=== PATIENT | male | born 1955 | race Caucasian/White ===

== ENCOUNTER 2017-04-15 08:00 | Outpatient (CLI) | payer OTHER | END 2017-04-15 08:01 | disposition home or self-care (01) | LOC: LAB.R 08:00 | PROVIDERS: ATTEND Family Medicine | DX: R31.9 Hematuria, unspecified (principal) | CPT/HCPCS: 87086 ==

== ENCOUNTER 2017-04-23 22:31 | Outpatient (CLI) | payer OTHER ==
[2017-04-23 19:35] LABS: CREATININE 1.1 mg/dL (0.6-1.2)
== END 2017-04-23 22:32 | disposition home or self-care (01) ==
LOC: LAB.WCP 22:31
PROVIDERS: ATTEND Family Medicine
DX: R31.9 Hematuria, unspecified (principal)
CPT/HCPCS: 36415; 82565

== ENCOUNTER 2017-06-05 06:43 | Outpatient (CLI) | payer OTHER ==
[2017-06-05 19:44] LABS: BASOPHILS # (AUTO) 0.1 10^3/uL (0.0-0.1); BASOPHILS % (AUTO) 0.9 %; EOSINOPHILS # (AUTO) 0.3 10^3/uL (0.0-0.7); EOSINOPHILS % (AUTO) 4.6 %; HCT - HEMATOCRIT 42.8 % (42.0-52.0); HGB - HEMOGLOBIN 14.4 g/dL (14.0-18.0); LYMPHOCYTES # (AUTO) 1.8 10^3/uL (1.5-3.5); LYMPHOCYTES % (AUTO) 28.7 %; MEAN CORPUSCULAR HEMOGLOBIN 31.3 pg (27.0-31.0); MEAN CORPUSCULAR HGB CONC 33.6 g/dL (32.0-36.0); MEAN CORPUSCULAR VOLUME 93.2 fL (80.0-94.0); MEAN PLATELET VOLUME 9.1 fL (7.4-11.4); MONOCYTES # (AUTO) 0.7 10^3/uL (0.0-1.0); MONOCYTES % (AUTO) 10.7 %; NEUTROPHILS # (AUTO) 3.5 10^3/uL (1.5-6.6); NEUTROPHILS % (AUTO) 55.1 %; NUCLEATED RED BLOOD CELLS AUTO 0.1 /100WBC; RED BLOOD COUNT 4.59 10^6/uL (4.70-6.10); RED CELL DISTRIBUTION WIDTH 13.4 % (12.0-15.0); UNCORRECTED WHITE BLOOD COUNT 6.4 x10^3/uL; WHITE BLOOD COUNT 6.4 x10^3/uL (4.8-10.8)
[2017-06-05 20:13] LABS: ALBUMIN/GLOBULIN RATIO 1.6 (1.0-2.2); BILIRUBIN,TOTAL 0.9 mg/dL (0.2-1.0); BUN - BLOOD UREA NITROGEN 20 mg/dL (6-20); CALCIUM 8.7 mg/dL (8.5-10.3); CARBON DIOXIDE - CO2 24 mmol/L (21-32); CHLORIDE 106 mmol/L (101-111); CHOL/HDL RATIO 4.6 (<5.0); CHOLESTEROL 152 mg/dL; CREATININE 1.1 mg/dL (0.6-1.2); GFR - MDRD 68 (>89); GLUCOSE 93 mg/dL (70-100); HDL CHOLESTEROL 33 mg/dL; LDL/HDL RATIO 3.3 (<3.6); POTASSIUM 3.9 mmol/L (3.5-5.0); SODIUM 138 mmol/L (135-145); TRIGLYCERIDES 56 mg/dL; VLDL CHOLESTEROL 11 mg/dL
== END 2017-06-05 06:44 | disposition home or self-care (01) ==
LOC: LAB.WCP 06:43
PROVIDERS: ATTEND Family Medicine
DX: Z00.00 Encounter for general adult medical examination without abnormal findings (principal)
CPT/HCPCS: 36415; 80053; 80061; 84443; 85025

== ENCOUNTER 2018-03-30 07:00 | Outpatient (CLI) | payer OTHER ==
[2018-03-30 14:04] LABS: BASOPHILS % (AUTO) 0.6 %; EOSINOPHILS # (AUTO) 0.2 10^3/uL (0.0-0.7); EOSINOPHILS % (AUTO) 3.9 %; HGB - HEMOGLOBIN 15.1 g/dL (14.0-18.0); LYMPHOCYTES # (AUTO) 1.4 10^3/uL (1.5-3.5); LYMPHOCYTES % (AUTO) 27.9 %; MEAN CORPUSCULAR HEMOGLOBIN 31.8 pg (27.0-31.0); MEAN CORPUSCULAR HGB CONC 34.1 g/dL (32.0-36.0); MEAN CORPUSCULAR VOLUME 93.4 fL (80.0-94.0); MEAN PLATELET VOLUME 9.7 fL (7.4-11.4); MONOCYTES # (AUTO) 0.6 10^3/uL (0.0-1.0); MONOCYTES % (AUTO) 11.4 %; NEUTROPHILS # (AUTO) 2.9 10^3/uL (1.5-6.6); NEUTROPHILS % (AUTO) 56.2 %; PLT - PLATELET COUNT 239 10^3/uL (130-450); RED BLOOD COUNT 4.76 10^6/uL (4.70-6.10); RED CELL DISTRIBUTION WIDTH 13.5 % (12.0-15.0); WHITE BLOOD COUNT 5.2 x10^3/uL (4.8-10.8)
[2018-03-30 14:28] LABS: ALBUMIN 4.3 g/dL (3.2-5.5); ALBUMIN/GLOBULIN RATIO 1.4 (1.0-2.2); ALKALINE PHOSPHATASE 59 IU/L (42-121); ALT ALANINE AMINOTRANSFERASE 30 IU/L (10-60); AST ASPARTATE AMINOTRANSFERASE 28 IU/L (10-42); BILIRUBIN,TOTAL 0.9 mg/dL (0.2-1.0); BUN - BLOOD UREA NITROGEN 23 mg/dL (6-20); CALCIUM 9.2 mg/dL (8.5-10.3); CARBON DIOXIDE - CO2 26 mmol/L (21-32); CHLORIDE 104 mmol/L (101-111); CHOL/HDL RATIO 4.1 (<5.0); CHOLESTEROL 136 mg/dL; CREATININE 1.2 mg/dL (0.6-1.2); GFR - MDRD 61 (>89); GLUCOSE 96 mg/dL (70-100); HDL CHOLESTEROL 33 mg/dL; LDL CHOLESTEROL,CALCULATED 88 mg/dL; LDL/HDL RATIO 2.7 (<3.6); SODIUM 139 mmol/L (135-145); TOTAL PROTEIN 7.4 g/dL (6.7-8.2); VLDL CHOLESTEROL 15 mg/dL
== END 2018-03-30 07:01 | disposition home or self-care (01) ==
LOC: LAB.WCP 07:00
PROVIDERS: ATTEND Family Medicine
DX: Z00.00 Encounter for general adult medical examination without abnormal findings (principal); I10 Essential (primary) hypertension
CPT/HCPCS: 36415; 80053; 80061; 83721; 84153; 84443; 85025

== ENCOUNTER 2018-12-06 08:44 | Outpatient (CLI) | payer OTHER ==
--- NOTE | 2018-12-06 10:44 | XRAY Report ---
Reason: SHOULDER PAIN,RIGHT Procedure Date: 12/06/2018 Accession Number: [id number] / [id number] Procedure: WCP - Shoulder 2 View RT CPT Code: FULL RESULT: EXAM: RIGHT SHOULDER RADIOGRAPHY EXAM DATE: 12/06/2018 09:08 AM. CLINICAL HISTORY: Shoulder pain, right. COMPARISON: None. TECHNIQUE: 2 views. FINDINGS: Bones: There is a deformity of the humeral head suggestive of prior dislocation, Hill-Sachs lesion. Joints: Moderate degenerative changes of the AC joint are noted. Soft tissues: The visualized hemithorax is unremarkable. No soft tissue swelling. IMPRESSION: Likely prior dislocation and degenerative AC joint changes with no other acute fracture or dislocation identified. [facility]
== END 2018-12-06 08:45 | disposition home or self-care (01) ==
LOC: DI.WCP 08:44
PROVIDERS: ATTEND Family Medicine
DX: M19.011 Primary osteoarthritis, right shoulder (principal)

== ENCOUNTER 2019-12-21 07:16 | Outpatient (CLI) | payer OTHER ==
[2019-12-21 13:10] LABS: BASOPHILS # (AUTO) 0.1 10^3/uL (0.0-0.1); BASOPHILS % (AUTO) 0.9 %; EOSINOPHILS # (AUTO) 0.2 10^3/uL (0.0-0.7); EOSINOPHILS % (AUTO) 3.6 %; HGB - HEMOGLOBIN 15.3 g/dL (14.0-18.0); LYMPHOCYTES # (AUTO) 1.3 10^3/uL (1.5-3.5); LYMPHOCYTES % (AUTO) 22.7 %; MEAN CORPUSCULAR HEMOGLOBIN 31.1 pg (27.0-31.0); MEAN CORPUSCULAR HGB CONC 32.2 g/dL (32.0-36.0); MEAN CORPUSCULAR VOLUME 96.5 fL (80.0-94.0); MONOCYTES # (AUTO) 0.6 10^3/uL (0.0-1.0); MONOCYTES % (AUTO) 10.7 %; NEUTROPHILS # (AUTO) 3.5 10^3/uL (1.5-6.6); NEUTROPHILS % (AUTO) 61.7 %; PLT - PLATELET COUNT 259 10^3/uL (130-450); RED BLOOD COUNT 4.92 10^6/uL (4.70-6.10); RED CELL DISTRIBUTION WIDTH 13.2 % (12.0-15.0); WHITE BLOOD COUNT 5.6 x10^3/uL (4.8-10.8)
[2019-12-21 13:55] LABS: ALBUMIN 4.1 g/dL (3.2-5.5); ALBUMIN/GLOBULIN RATIO 1.4 (1.0-2.2); ALKALINE PHOSPHATASE 65 IU/L (42-121); ALT ALANINE AMINOTRANSFERASE 18 IU/L (10-60); AST ASPARTATE AMINOTRANSFERASE 24 IU/L (10-42); BILIRUBIN,TOTAL 0.8 mg/dL (0.2-1.0); BUN - BLOOD UREA NITROGEN 19 mg/dL (6-20); CALCIUM 9.5 mg/dL (8.5-10.3); CARBON DIOXIDE - CO2 30 mmol/L (21-32); CHLORIDE 106 mmol/L (101-111); CHOL/HDL RATIO 3.7 (<5.0); CHOLESTEROL 149 mg/dL; GLUCOSE 100 mg/dL (70-100); HDL CHOLESTEROL 40 mg/dL; LDL CHOLESTEROL,CALCULATED 97 mg/dL; LDL/HDL RATIO 2.4 (<3.6); SODIUM 141 mmol/L (135-145); VLDL CHOLESTEROL 12 mg/dL
[2019-12-21 14:09] LABS: HB2 TOTAL 15.9 g/dL; HEMOGLOBIN A1C 0.61 g/dL; HEMOGLOBIN A1C % 5.7 % (4.6-6.2)
== END 2019-12-21 23:59 | disposition home or self-care (01) ==
LOC: LAB.WCP 07:16
PROVIDERS: ATTEND Family Medicine
DX: R73.01 Impaired fasting glucose (principal); I10 Essential (primary) hypertension; Z12.5 Encounter for screening for malignant neoplasm of prostate; K21.9 Gastro-esophageal reflux disease without esophagitis; F41.9 Anxiety disorder, unspecified
CPT/HCPCS: 36415; 80053; 80061; 83036; 83721; 84153; 84443; 85025

== ENCOUNTER 2020-12-24 08:00 | Outpatient (CLI) | payer OTHER ==
[2020-12-24 13:39] LABS: BASOPHILS % (AUTO) 0.8 %; EOSINOPHILS # (AUTO) 0.1 10^3/uL (0.0-0.7); EOSINOPHILS % (AUTO) 2.6 %; HCT - HEMATOCRIT 45.6 % (42.0-52.0); LYMPHOCYTES # (AUTO) 1.4 10^3/uL (1.5-3.5); LYMPHOCYTES % (AUTO) 26.8 %; MEAN CORPUSCULAR HEMOGLOBIN 31.8 pg (27.0-31.0); MEAN CORPUSCULAR HGB CONC 32.9 g/dL (32.0-36.0); MEAN CORPUSCULAR VOLUME 96.8 fL (80.0-94.0); MEAN PLATELET VOLUME 11.1 fL (7.4-11.4); MONOCYTES # (AUTO) 0.6 10^3/uL (0.0-1.0); MONOCYTES % (AUTO) 11.9 %; NEUTROPHILS # (AUTO) 2.9 10^3/uL (1.5-6.6); NEUTROPHILS % (AUTO) 57.7 %; PLT - PLATELET COUNT 252 10^3/uL (130-450); RED BLOOD COUNT 4.71 10^6/uL (4.70-6.10); RED CELL DISTRIBUTION WIDTH 12.7 % (12.0-15.0)
[2020-12-24 13:47] LABS: BILIRUBIN,URINE NEGATIVE (NEGATIVE); GLUCOSE, URINE (UA) NEGATIVE (NEGATIVE); KETONES,URINE (UA) NEGATIVE (NEGATIVE); LEUKOCYTE ESTERASE, URINE NEGATIVE (NEGATIVE); NITRITE,URINE NEGATIVE (NEGATIVE); OCCULT BLOOD,URINE SMALL (NEGATIVE); PROTEIN,URINE NEGATIVE (NEGATIVE); UROBILINOGEN,URINE 0.2 (NORMAL) E.U./dL (NORMAL)
[2020-12-24 13:48] LABS: CLARITY,URINE CLEAR (CLEAR)
[2020-12-24 13:53] LABS: CREATININE,URINE 84.1 mg/dL; MICROALBUM/CREATININE RATIO,UR 4.8 ug/mg (<30.0); MICROALBUMIN,URINE 0.4 mg/dL (0-300.0)
[2020-12-24 14:02] LABS: BACTERIA,URINE Few /HPF (None Seen); RBC,URINE 0-5 /HPF (0-5); SQUAMOUS EPITHELIAL CELL,UR FEW Squamous (<= Few); WBC,URINE 0-3 /HPF (0-3)
[2020-12-24 14:03] LABS: CASTS, URINE 0-2 Hyaline Casts /LPF
[2020-12-24 14:04] LABS: ESTIMATED AVERAGE GLUCOSE 131 mg/dL (70-100); HEMOGLOBIN A1c% 6.2 % (4.27-6.07)
[2020-12-24 14:13] LABS: ALBUMIN 4.2 g/dL (3.2-5.5); ALBUMIN/GLOBULIN RATIO 1.5 (1.0-2.2); ALKALINE PHOSPHATASE 67 IU/L (42-121); ALT ALANINE AMINOTRANSFERASE 32 IU/L (10-60); AST ASPARTATE AMINOTRANSFERASE 26 IU/L (10-42); BILIRUBIN,TOTAL 0.8 mg/dL (0.2-1.0); BUN - BLOOD UREA NITROGEN 18 mg/dL (6-20); CALCIUM 9.1 mg/dL (8.5-10.3); CARBON DIOXIDE - CO2 27 mmol/L (21-32); CHLORIDE 104 mmol/L (101-111); CHOL/HDL RATIO 3.9 (<5.0); CHOLESTEROL 142 mg/dL; CREATININE 1.1 mg/dL (0.6-1.2); GFR - MDRD 67 (>89); GLUCOSE 101 mg/dL (70-100); HDL CHOLESTEROL 36 mg/dL; LDL CHOLESTEROL,CALCULATED 91 mg/dL; LDL/HDL RATIO 2.5 (<3.6); POTASSIUM 4.3 mmol/L (3.5-5.0); SODIUM 138 mmol/L (135-145); TRIGLYCERIDES 77 mg/dL; VLDL CHOLESTEROL 15 mg/dL
[2020-12-24 14:17] LABS: PSA FREE 0.106 ng/mL (0.16-2.81)
[2020-12-24 14:18] LABS: PSA TOTAL 0.812 ng/mL (0.000-2.000)
[2020-12-24 14:22] LABS: THYROID STIMULATING HORMONE 1.22 uIU/mL (0.34-5.60)
[2020-12-28 15:32] LABS: FREE TESTOSTERONE 49.6 pg/mL (35.0-155.0)
== END 2020-12-24 23:59 | disposition home or self-care (01) ==
LOC: LAB.WCP 08:00
PROVIDERS: ATTEND Naturopath
DX: R73.03 Prediabetes (principal); Z13.0 Encounter for screening for diseases of the blood and blood-forming organs and certain disorders involving the immune mechanism; Z13.21 Encounter for screening for nutritional disorder; Z13.228 Encounter for screening for other metabolic disorders; Z13.220 Encounter for screening for lipoid disorders; Z13.6 Encounter for screening for cardiovascular disorders; Z82.49 Family history of ischemic heart disease and other diseases of the circulatory system; Z13.29 Encounter for screening for other suspected endocrine disorder; Z12.5 Encounter for screening for malignant neoplasm of prostate; I10 Essential (primary) hypertension
CPT/HCPCS: 36415; 80053; 80061; 81001; 81003; 82043; 82306; 82570; 82728; 83036; 83540; 83721; 84153; 84154; 84270; 84402; 84403; 84443; 84466; 85025; 86141; 87086

== ENCOUNTER 2021-04-12 08:00 | Outpatient (CLI) | payer OTHER ==
[2021-04-12 12:32] LABS: BASOPHILS # (AUTO) 0.1 10^3/uL (0.0-0.1); EOSINOPHILS # (AUTO) 0.2 10^3/uL (0.0-0.7); EOSINOPHILS % (AUTO) 3.7 %; HCT - HEMATOCRIT 44.9 % (42.0-52.0); HGB - HEMOGLOBIN 14.5 g/dL (14.0-18.0); LYMPHOCYTES # (AUTO) 1.3 10^3/uL (1.5-3.5); LYMPHOCYTES % (AUTO) 22.5 %; MEAN CORPUSCULAR HEMOGLOBIN 31.3 pg (27.0-31.0); MEAN CORPUSCULAR HGB CONC 32.3 g/dL (32.0-36.0); MONOCYTES # (AUTO) 0.7 10^3/uL (0.0-1.0); MONOCYTES % (AUTO) 10.9 %; NEUTROPHILS # (AUTO) 3.7 10^3/uL (1.5-6.6); NEUTROPHILS % (AUTO) 61.7 %; PLT - PLATELET COUNT 234 10^3/uL (130-450); RED BLOOD COUNT 4.63 10^6/uL (4.70-6.10)
[2021-04-12 12:58] LABS: % IRON SATURATION 24 % (20-50); IRON 85 ug/dL (45-182); TOTAL IRON BINDING CAPACITY 360 ug/dL (250-450); TRANSFERRIN 257 mg/dL (180-329)
[2021-04-15 20:21] LABS: FREE TESTOSTERONE 35.3 pg/mL (35.0-155.0)
== END 2021-04-12 23:59 | disposition home or self-care (01) ==
LOC: LAB.WCP 08:00
PROVIDERS: ATTEND Naturopath
DX: D72.810 Lymphocytopenia (principal); E55.9 Vitamin D deficiency, unspecified; D75.89 Other specified diseases of blood and blood-forming organs; N52.9 Male erectile dysfunction, unspecified; Z13.0 Encounter for screening for diseases of the blood and blood-forming organs and certain disorders involving the immune mechanism; Z13.21 Encounter for screening for nutritional disorder; Z13.29 Encounter for screening for other suspected endocrine disorder
CPT/HCPCS: 36415; 82306; 82728; 83540; 84270; 84402; 84403; 84466; 85025

== ENCOUNTER 2021-12-11 16:17 | Outpatient (CLI) | payer OTHER ==
[2021-12-11 21:05] LABS: ESTIMATED AVERAGE GLUCOSE 143 mg/dL (70-100); HEMOGLOBIN A1c% 6.6 % (4.27-6.07)
[2021-12-11 21:07] LABS: BASOPHILS # (AUTO) 0.1 10^3/uL (0.0-0.1); BASOPHILS % (AUTO) 0.9 %; EOSINOPHILS # (AUTO) 0.2 10^3/uL (0.0-0.7); EOSINOPHILS % (AUTO) 3.2 %; HCT - HEMATOCRIT 45.1 % (42.0-52.0); HGB - HEMOGLOBIN 14.8 g/dL (14.0-18.0); LYMPHOCYTES # (AUTO) 1.8 10^3/uL (1.5-3.5); LYMPHOCYTES % (AUTO) 26.9 %; MEAN CORPUSCULAR HEMOGLOBIN 30.9 pg (27.0-31.0); MEAN CORPUSCULAR HGB CONC 32.8 g/dL (32.0-36.0); MEAN CORPUSCULAR VOLUME 94.2 fL (80.0-94.0); MEAN PLATELET VOLUME 11.4 fL (7.4-11.4); MONOCYTES # (AUTO) 0.8 10^3/uL (0.0-1.0); MONOCYTES % (AUTO) 12.9 %; NEUTROPHILS # (AUTO) 3.6 10^3/uL (1.5-6.6); NEUTROPHILS % (AUTO) 55.9 %; PLT - PLATELET COUNT 249 10^3/uL (130-450); RED BLOOD COUNT 4.79 10^6/uL (4.70-6.10); RED CELL DISTRIBUTION WIDTH 12.7 % (12.0-15.0); WHITE BLOOD COUNT 6.5 x10^3/uL (4.8-10.8)
[2021-12-11 21:20] LABS: ALBUMIN/GLOBULIN RATIO 1.4 (1.0-2.2); ALKALINE PHOSPHATASE 82 IU/L (42-121); ALT ALANINE AMINOTRANSFERASE 29 IU/L (10-60); AST ASPARTATE AMINOTRANSFERASE 26 IU/L (10-42); BILIRUBIN,TOTAL 0.5 mg/dL (0.2-1.0); BUN - BLOOD UREA NITROGEN 22 mg/dL (6-20); CALCIUM 9.2 mg/dL (8.5-10.3); CARBON DIOXIDE - CO2 26 mmol/L (21-32); CHLORIDE 108 mmol/L (101-111); CHOL/HDL RATIO 4.9 (<5.0); CHOLESTEROL 153 mg/dL; CREATININE 1.1 mg/dL (0.6-1.2); GFR - MDRD 67 (>89); GLUCOSE 107 mg/dL (70-100); HDL CHOLESTEROL 31 mg/dL; LDL CHOLESTEROL,CALCULATED 86 mg/dL; LDL/HDL RATIO 2.8 (<3.6); POTASSIUM 4.1 mmol/L (3.5-5.0); SODIUM 143 mmol/L (135-145); TOTAL PROTEIN 6.9 g/dL (6.7-8.2); TRIGLYCERIDES 182 mg/dL; VLDL CHOLESTEROL 36 mg/dL
== END 2021-12-11 16:18 | disposition home or self-care (01) ==
LOC: LAB.N 16:17
PROVIDERS: ATTEND Family Medicine
DX: I10 Essential (primary) hypertension (principal); R73.01 Impaired fasting glucose
CPT/HCPCS: 36415; 80053; 80061; 83036; 83721; 85025